=== PATIENT | male | born 1970 | race Caucasian/White ===

== ENCOUNTER 2016-09-20 16:58 | Emergency (ER) | payer OTHER ==
[~2016-09-20] VITALS: Ht 195.6 cm; Wt 120.2 kg
[~2016-09-20 16:58] MED LIST: HYDR-971 PO; PENI500T PO; no home medication
[2016-09-20 17:12] VITALS: BP 149/79
[2016-09-20] MEDS ORDERED: DIPHTH,PERTUSS(ACELL),TET TOX 0.5 ML DISP.SYRIN. VAX IM ONE (17:30)
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
== END 2016-09-20 17:54 | disposition home or self-care (01) ==
LOC: ER 16:58
DX: S20.212A Contusion of left front wall of thorax, initial encounter (principal); S20.211A Contusion of right front wall of thorax, initial encounter; S90.821A Blister (nonthermal), right foot, initial encounter; I10 Essential (primary) hypertension; F43.10 Post-traumatic stress disorder, unspecified; Y08.89XA Assault by other specified means, initial encounter; Y93.01 Activity, walking, marching and hiking; Y92.89 Other specified places as the place of occurrence of the external cause; Y99.8 Other external cause status
CPT/HCPCS: 71020; 99284-25

== ENCOUNTER 2017-06-09 15:58 | Emergency (ER) | payer OTHER | END 2017-06-09 16:19 | disposition home or self-care (01) | LOC: ER 15:58 | DX: K02.9 Dental caries, unspecified (principal); I10 Essential (primary) hypertension; F43.10 Post-traumatic stress disorder, unspecified | CPT/HCPCS: 99283 ==

== ENCOUNTER → 2018-03-19 | Outpatient (CLI) | payer OTHER ==
[2017-06-09 16:07] VITALS: BP 174/102
[~2018-03-19] MED LIST changes: +AMOX500C PO; +HYDR-3164 PO; -HYDR-971 PO; +IBUP-1060 PO
--- NOTE | 2018-03-22 10:06 | RAD ---
EXAM: CT right lower extremity without contrast DATE: 03/19/2018 9:30 AM COMPARISON: Radiographs 02/27/2018 INDICATION: TIBIAL PLATEAU FRACTURE RIGHT TECHNIQUE: Non-union protocol completed through the affected site without IV contrast. 2-D reformatted sagittal and coronal images were created at the CT console workstation. FINDINGS: There is a vertical split-type tear of the lateral tibial plateau extending to the lateral tibial metaphysis. Mild associated periosteal reaction is seen at the level of the lateral metaphysis suggesting progressive healing, subacute to chronic fracture. There is minimal articular surface depression measuring 1-2 mm centrally within the lateral tibial plateau with minimal associated irregularity. Small right knee joint effusion. Normal muscle bulk. Borderline lateral patellar tracking. IMPRESSION: Split-type lateral tibial plateau fracture without significant displacement or depression and minimal articular surface irregularity. Associated periosteal reaction suggests progressive healing. Electronically signed by: Julian Sanches MD (03/22/2018 10:02 AM) [facility]
== END | disposition home or self-care (01) ==
LOC: CT 08:36
PROVIDERS: ATTEND Orthopaedic Surgery Sports Medicine
DX: S82.141A Displaced bicondylar fracture of right tibia, initial encounter for closed fracture (principal); S83.31XA Tear of articular cartilage of right knee, current, initial encounter; M25.461 Effusion, right knee; X58.XXXA Exposure to other specified factors, initial encounter; Y93.89 Activity, other specified; Y92.89 Other specified places as the place of occurrence of the external cause; Y99.8 Other external cause status
CPT/HCPCS: 73700

== ENCOUNTER 2018-09-13 09:18 | Emergency (ER) | payer OTHER ==
[~2018-09-13] VITALS: Ht 198.1 cm; Wt 106.6 kg
[~2018-09-13 09:18] MED LIST changes: -AMOX875T PO; -CHLO15MO2 PO
[2018-09-13 09:22] VITALS: BP 152/95
[2018-09-13] MEDS ORDERED: AMOX875T PO (09:46)
[2018-09-13] MEDS ORDERED: HYDR-3164 PO (09:46)
[2018-09-13] MEDS ORDERED: CHLO15MO2 PO (09:46)
--- NOTE | 2018-09-13 09:46 | PHYS DOC ---
Past Medical History Past Medical History: Arrhythmia, Hypertension, Other Additional Past Medical Histor: suicidal ideation,suicide attempt (OD on trazodone, seroquel);ptsd Past Surgical History: Other Additional Past Surgical Histo: right hand I&D on index finger Alcohol Use: None Drug Use: None Adult General Chief Complaint Chief Complaint: DENTAL PROBLEM HPI HPI Patient is a 47 year old medical presents to the ED today complaining of a throbbing 9 out of 10 intermittent left lower gum dental pain that began 2 days ago. Patient denies any fever or trismus. He states he does not have a dentist and would like a referral. Review of Systems Review of Systems Constitutional: Denies fever or chills [] HENT: Reports left lower gum dental pain. Denies nasal congestion or sore throat [] Respiratory: Denies cough or shortness of breath [] Musculoskeletal: Denies back pain or joint pain [] Integument: Denies rash or skin lesions [] Neurologic: Denies headache, focal weakness or sensory changes [] All other systems were reviewed and found to be within normal limits, except as documented in this note. Allergies Allergies Allergies Coded Allergies Type Severity Reaction Last Updated Verified No Known Drug Allergies 06/05/13 No Physical Exam Physical Exam Constitutional: Well developed, well nourished, no acute distress, non-toxic appearance. [] HENT: Normocephalic, atraumatic, bilateral external ears normal, oropharynx moist, no oral exudates, nose normal. [] Very poor dentition, missing multiple teeth, upper gum appears to have one tooth roughly tooth #8. Lower gum noted for severe infected dental caries, the gums appear infected too. There is erythema on the left lower gums. No dental abscess. Skin: Warm, dry, no erythema, no rash. [] Back: No tenderness, no CVA tenderness. [] Extremities: No tenderness, no cyanosis, no clubbing, ROM intact, no edema. [] Neurologic: Alert and oriented X 3, normal motor function, normal sensory function, no focal deficits noted. [] Psychologic: Affect normal, judgement normal, mood normal. [] Current Patient Data Vital Signs Vital Signs Date Time Temp Pulse Resp B/P (MAP) Pulse Ox O2 Delivery O2 Flow Rate FiO2 09/13/18 09:22 98.5 92 20 152/95 (114) 98 Room Air 98.5 EKG EKG [] Radiology/Procedures Radiology/Procedures [] Course & Med Decision Making Course & Med Decision Making Pertinent Labs and Imaging studies reviewed. (See chart for details) This is a 47-year-old male patient presented to the ED with infected dental caries. Discharged on amoxicillin, highly emphasized to this patient the importance of seeing a dentist for follow-up. Provided dental list. Also discharged with Peridex and 10 tablets of [place] for pain. Dragon Disclaimer Dragon Disclaimer This electronic medical record was generated, in whole or in part, using a voice recognition dictation system. Departure Departure Impression: Primary Impression: Dentalgia Additional Impressions: Infected dental caries Gingivitis Disposition: HOME, SELF-CARE Condition: STABLE Referrals: BRIANA PERKINS MD (PCP) follow up with your doctor and a dentist in 1-2 weeks Patient Instructions: Dental Caries Additional Instructions: You were evaluated in the emergency for infected dental caries. Try your best to brush your teeth. Take the prescribed antibiotics as ordered until completed. Follow-up with the dentist from the list provided as soon as you can. Scripts Hydrocodone/Apap 5-325 (NORCO 5-325 TABLET) 1 Each Tablet 1 TAB PO Q6HRS, #10 TAB Prov: AC CARDENAS APRN 09/13/18 Chlorhexidine Gluconate (PERIDEX) 15 Ml Mouthwash 15 ML PO BID, #946 ML Prov: AC CARDENAS APRN 09/13/18 Amoxicillin (AMOXICILLIN) 875 Mg Tablet 1 TAB PO BID, #20 TAB Prov: AC CARDENAS APRN 09/13/18 Problem Qualifiers AC CARDENAS APRN Sep 13, 2018 09:46
== END 2018-09-13 10:08 | disposition home or self-care (01) ==
LOC: ER 09:18
DX: K04.7 Periapical abscess without sinus (principal); K05.10 Chronic gingivitis, plaque induced; K08.89 Other specified disorders of teeth and supporting structures; I10 Essential (primary) hypertension
CPT/HCPCS: 99283

== ENCOUNTER → 2018-09-13 | Outpatient (CLI) | payer OTHER ==
[2017-06-09 16:07] VITALS: BP 174/102
[~2018-09-13] MED LIST changes: +AMOX875T PO; +CHLO15MO2 PO
--- NOTE | 2018-09-13 09:57 | CARD ---
MR#: [id number] Date of Study: 09/13/2018 Ordering Physician: SHANTEL DODGE, Referring Physician: SHANTEL DODGE, Tech: Laura Pagan [facility] APPROVED REPORT EXAM: Two-dimensional and M-mode echocardiogram with Doppler and color Doppler. Other Information Quality : GoodHR: 76bpm Rhythm : Other INDICATION PAC 2D DIMENSIONS RVDd3.4 (2.9-3.5cm)Left Atrium(2D)4.1 (1.6-4.0cm) IVSd1.6 (0.7-1.1cm)Aortic Root(2D)3.7 (2.0-3.7cm) LVDd5.8 (3.9-5.9cm)LVOT Diameter2.7 (1.8-2.4cm) PWd1.0 (0.7-1.1cm)LVDs3.9 (2.5-4.0cm) FS (%) 31.8 %SV97.3 ml LVEF(%)59.1 (>50%) M-Mode DIMENSIONS IVSd1.70 (0.7-1.1cm) Aortic Valve AoV Peak Adrian.165.7cm/sAoV VTI31.5cm AO Peak GR.11.0mmHgLVOT Peak Adrian.86.4cm/s AO Mean GR.6mmHgAVA (VMAX)3.09cm2 JIMMY (VTI)3.00cm2 Mitral Valve MV E Nvaeboio09.2cm/sMV DECEL PGHT632ao MV A Nuaujkcg20.5cm/sE/A Ratio0.8 Pulmonary Valve PV Peak Qxdrfsfl328.6cm/s Tricuspid Valve TR P. Anjqfcjw391af/sRAP WZOSFHUZ5loIl TR Peak Gr.32xnQuGOBK75xwJt LEFT VENTRICLE The Left Ventricle is borderline dilated. Proximal septal thickening is noted. The left ventricular s ystolic function is normal and the ejection fraction is within normal range. The Ejection Fraction is 55-60%. There is normal LV segmental wall motion. Tissue Doppler imaging reveals mild left ventricul ar diastolic dysfunction. RIGHT VENTRICLE The right ventricle is normal size. There is normal right ventricular wall thickness. The right ventr icular systolic function is normal. ATRIA The left atrium is mildly dilated. The right atrium is mildly dilated. The interatrial septum is inta ct with no evidence for an atrial septal defect or patent foramen ovale as noted on 2-D or Doppler im aging. AORTIC VALVE The aortic valve is normal in structure and function. The aortic valve is trileaflet. Doppler and Col or Flow revealed no significant aortic regurgitation. There is no significant aortic valvular stenosi s. There is no aortic valvular vegetation. MITRAL VALVE The mitral valve is normal in structure and function. There is no evidence of mitral valve prolapse. There is no mitral valve stenosis. Doppler and Color Flow revealed no mitral valve regurgitation note d. TRICUSPID VALVE The tricuspid valve is normal in structure and function. Doppler and Color Flow revealed trace to mil d tricuspid regurgitation. The PA pressure was estimated at 36 mmHg. There is no tricuspid valve prol apse or vegetation. There is no tricuspid valve stenosis. PULMONIC VALVE The pulmonary valve is normal in structure and function. Doppler and Color Flow revealed trace pulmon ic valvular regurgitation. There is no pulmonic valvular stenosis. GREAT VESSELS The aortic root is mildly enlarged. The ascending aorta is Mildly dilated at 3.8cm. The IVC is normal in size and collapses >50% with inspiration. PERICARDIAL EFFUSION There is no evidence of significant pericardial effusion. Critical Notification Critical Value: No <Conclusion> The left ventricular systolic function is normal and the ejection fraction is within normal range. Th e Ejection Fraction is 55-60%. There is normal LV segmental wall motion. The ascending aorta is Mildly dilated at 3.8cm. Signed by : Shantel Dodge, Electronically Approved : 09/13/2018 09:57:14
== END | disposition home or self-care (01) ==
LOC: ECHO 08:42
PROVIDERS: ATTEND Internal Medicine Cardiovascular Disease
DX: I07.1 Rheumatic tricuspid insufficiency (principal); I77.89 Other specified disorders of arteries and arterioles; I48.1 Persistent atrial fibrillation
CPT/HCPCS: 93306

== ENCOUNTER 2018-12-16 23:33 | Emergency (ER) | payer OTHER ==
[~2018-12-16] VITALS: Ht 195.6 cm; Wt 113.4 kg
[~2018-12-16 23:33] MED LIST changes: +AMOX875T PO; +CHLO15MO2 PO
[2018-12-16 23:53] VITALS: BP 140/60
--- NOTE | 2018-12-17 01:38 | PHYS DOC ---
Past Medical History Past Medical History: Arrhythmia, Hypertension, Other Additional Past Medical Histor: suicidal ideation,suicide attempt (OD on trazodone, seroquel);ptsd Past Surgical History: Other Additional Past Surgical Histo: right hand I&D on index finger Alcohol Use: None Drug Use: None Adult General Chief Complaint Chief Complaint: SKIN PROBLEM HPI HPI Patient is a 48 year old -[place] male who presents requesting work note due to several missed days of work due to blistering of both feet. Patient has blisters to the pads of both feet and cracking under right toes. Denies history of diabetes. Patient is not in acute distress. Patient has not sought care for his conditions prior to presenting to the emergency department this evening] Review of Systems Review of Systems No other acute symptoms or complaints per patient All other systems were reviewed and found to be within normal limits, except as documented in this note. Allergies Allergies Allergies Coded Allergies Type Severity Reaction Last Updated Verified No Known Drug Allergies 06/05/13 No Physical Exam Physical Exam Constitutional: Well developed, well nourished, no acute distress, resting comfortably. [] HENT: Normocephalic, atraumatic, bilateral external ears normal, oropharynx moist, nose normal. [] Extremities: Superficial blistering of pads of both feet with cracking of skin on the underneath of R toes. No cellulitis appreciated. [] Neurologic: Alert and oriented X 3, normal motor function, normal sensory function, no focal deficits noted. [] Psychologic: Affect normal, judgement normal, mood normal. [] Current Patient Data Vital Signs Vital Signs Date Time Temp Pulse Resp B/P (MAP) Pulse Ox O2 Delivery O2 Flow Rate FiO2 12/16/18 23:53 97.9 38 16 140/60 (86) 95 Room Air 97.9 EKG EKG [] Radiology/Procedures Radiology/Procedures [] Course & Med Decision Making Course & Med Decision Making Pertinent Labs and Imaging studies reviewed. (See chart for details) [No cellulitis. Patient provided basic information on tx of blister with instructions to follow up with PCP/] Oriana Disclaimer Dragon Disclaimer This electronic medical record was generated, in whole or in part, using a voice recognition dictation system. Departure Departure Impression: Primary Impression: Foot and toe(s), blister, without mention of infection Disposition: 01 HOME, SELF-CARE Condition: STABLE Patient Instructions: Blisters Additional Instructions: Please follow up with your PCP regarding need for work excuse note and evalu ation of blisters. Follow instructions provided a handout. Take Tylenol as needed for pain. CODY MONK DO Dec 17, 2018 01:38
== END 2018-12-17 01:43 | disposition home or self-care (01) ==
LOC: ER 23:33
DX: S90.822A Blister (nonthermal), left foot, initial encounter (principal); S90.821A Blister (nonthermal), right foot, initial encounter; I10 Essential (primary) hypertension; X58.XXXA Exposure to other specified factors, initial encounter; Y93.89 Activity, other specified; Y92.89 Other specified places as the place of occurrence of the external cause; Y99.8 Other external cause status
CPT/HCPCS: 99281

== ENCOUNTER 2020-02-09 23:15 | Emergency (ER) | payer BC, MEDICAID ==
[~2020-02-09] VITALS: Ht 195.6 cm; Wt 70.3 kg
[2020-02-10] MEDS ORDERED: LISI-338 PO (00:50)
--- NOTE | 2020-02-10 00:51 | ED.ADGEN ---
Past Medical History Past Medical History: Arrhythmia, Hypertension, Other Additional Past Medical Histor: suicidal ideation,suicide attempt (OD on trazodone, seroquel);ptsd Past Surgical History: Other Additional Past Surgical Histo: right hand I&D on index finger Smoking Status: Never Smoker Alcohol Use: None Drug Use: None General Adult EDM: Chief Complaint: HYPERTENSION HPI: HPI: Patient is a 49-year-old male with past medical history of hypertension who presents to the emergency room complaining of a headache and concern that his blood pressure may be elevated. He ran out of his lisinopril 2 months ago. He is looking for a primary care physician. He states that his headache is now resolved. He denies any other symptoms. He denies URI symptoms, fever, chills, sweats, nausea, vomiting, abdominal pain, decreased urination, shortness of breath, cough, chest pain Review of Systems: Review of Systems: Complete ROS is negative unless otherwise documented in HPI Current Medications: Current Medications Medications (Trade) Dose Ordered Sig/Al Start Time Stop Time Status Last Admin Dose Admin Sumatriptan Succinate (Imitrex) 25 mg 1X ONCE 02/10/20 00:30 02/10/20 00:31 DC 02/10/20 00:04 25 MG Allergies: Allergies: Allergies Coded Allergies Type Severity Reaction Last Updated Verified No Known Drug Allergies 06/05/13 No Physical Exam: PE: General: Awake, alert, NAD. Well Nourished, well hydrated. Cooperative HEENT: Atraumatic, EOMI, PERRL, airway patent, moist oral mucosa Neck: Supple, trachea midline Respiratory: CTA bilaterally, normal effort, no wheezing/crackles CV: RRR, no murmur, cap refill <2 GI: Soft, nondistended, nontender, no masses MSK: No obvious deformities Skin: Warm, dry, intact Neuro: A&O x3, speech NL, 5/5 strength in BUE/BLE distally and proximally, CN 2- 12 intact, cerebellar testing normal Psych: Normal affect, normal mood, not suicidal or homicidal Current Patient Data: Vital Signs: Vital Signs Date Time Temp Pulse Resp B/P (MAP) Pulse Ox O2 Delivery O2 Flow Rate FiO2 02/09/20 23:30 98.1 82 16 131/90 (104) 98 Room Air 98.1 EKG: EKG: [] Heart Score: Risk Factors: Risk Factors: DM, Current or recent (<one month) smoker, HTN, HLP, family history of CAD, obesity. Risk Scores: Score 0 - 3: 2.5% MACE over next 6 weeks - Discharge Home Score 4 - 6: 20.3% MACE over next 6 weeks - Admit for Clinical Observation Score 7 - 10: 72.7% MACE over next 6 weeks - Early Invasive Strategies Radiology/Procedures: Radiology/Procedures: [] Course & Med Decision Making: Course & Med Decision Making Pertinent Labs and Imaging studies reviewed. (See chart for details) Patient is 49-year-old male who presents to the emergency room with a headache which is now resolved. Blood pressure is normal. We will give him a prescription for his home blood pressure medication. We will give him a list of primary care physicians who will follow him up. We have discussed the symptoms in which she should return for headache or high blood pressure. Patient's test results and vitals while in the ED were fully reviewed and discussed with the patient. Patient is stable and at this time does not need admission to the hospital. We have discussed strict return precautions and the importance of following up with their Primary Care Physician. Patient stated understanding and was given an opportunity to ask any questions. Patient is in agreement with plan. Oriana Disclaimer: Oriana Disclaimer: This electronic medical record was generated, in whole or in part, using a voice recognition dictation system. Departure Departure Impression: Primary Impression: Headache Additional Impression: Hypertension Disposition: 01 DC HOME SELF CARE/HOMELESS Condition: STABLE Referrals: NO PCP (PCP) Patient Instructions: General Headache Without Cause, Hypertension Scripts Lisinopril (LISINOPRIL) 5 Mg Tablet 1 TAB PO DAILY, #30 TAB 5 Refills Prov: MICHELLE ASKEW MD 02/10/20 Problem Qualifiers MICHELLE ASKEW MD Feb 10, 2020 00:51
[2020-02-10 01:25] VITALS: BP 124/79
--- NOTE | 2020-02-11 15:15 | EKG ---
[facility] [address] [place] [address] Test Date: 2020-02-10 Test Time: 00:02:13 Pat Name: LYLE GAMBINO Department: Room: Gender: M Proposal Director: : 1970 Requested By: MICHELLE ASKEW Order Number: [id number] Reading MD: Measurements Intervals [place] Rate: 85 P: MS: QRS: 46 QRSD: 94 T: 49 QT: 384 QTc: 463 Interpretive Statements IRREGULAR RHYTHM, NO P-WAVE FOUND OTHERWISE NORMAL ECG RI6.02 No previous ECG available for comparison
== END 2020-02-10 01:25 | disposition home or self-care (01) ==
LOC: ER 23:15
DX: I10 Essential (primary) hypertension (principal); R51.9 Headache, unspecified; I49.9 Cardiac arrhythmia, unspecified; Z98.890 Other specified postprocedural states
CPT/HCPCS: 93005; 99283